=== PATIENT | male | born 1970 | race Caucasian/White ===

== ENCOUNTER → 2021-03-23 09:03 | Outpatient (CLI) | payer OTHER, SELFPAY ==
--- NOTE | ~2021-03-23 | XR_ITS ---
XR elbow RT min 3V DATE: 03/23/2021 09:17 INDICATION: Lateral epicondylitis TECHNIQUE: 4 views COMPARISON: 10/26/2013 right elbow FINDINGS: No fracture or dislocation or joint effusion. No periosteal reaction or bone destruction. IMPRESSION: Negative right elbow Reviewed, dictated and finalized at location A. IMPRESSION: Negative right elbow
== END ==
PROVIDERS: PCP Family Medicine; Visit Provider Physician Assistant
DX: M77.11 Lateral epicondylitis, right elbow (principal)
CPT/HCPCS: 73080

== ENCOUNTER 2022-07-29 22:29 | Emergency (ER) | payer OTHER, SELFPAY ==
[2022-07-29 22:33] VITALS: BP 129/82; PULSE 64; RESP 20; TEMP 36.2; O2SAT 98
--- NOTE | 2022-07-29 23:35 | ED.EYEPROB ---
HPI - Eye Problem General Chief complaint: Eye Problems Stated complaint: Left eye foreign body Time Seen by Provider: 07/29/22 22:47 History of Present Illness HPI Narrative: 52-year-old male presents the emergency room for evaluation of something in my left eye . Patient believes that he may have a eyelash under his upper eyelid. States that he was trying to remove it with a Q-tip, and was unsuccessful. Patient attempted to irrigated for several minutes and again felt that it was unsuccessful. Presents with erythematous eye. No drainage. Denies any visual changes or vision loss. Denies photophobia. Related Data Allergies Allergy/AdvReac Type Severity Reaction Status Date / Time penicillin V Allergy Unknown Unknown Verified 07/29/22 22:31 Penicillins Allergy Unknown Unknown Verified 07/29/22 22:31 Review of Systems Review of Systems: CONSTITUTIONAL: Denies fever, chills, or sweats. EYES: Reports left eye pain ENT: Denies rhinorrhea, congestion, sore throat, or otalgia. CARDIOVASCULAR: Denies chest pain, palpitations, or edema. RESPIRATORY: Denies cough or dyspnea. GASTROINTESTINAL: Denies abdominal pain, nausea, vomiting, or diarrhea. GENITOURINARY: Denies dysuria or hematuria. SKIN: Denies rash or itching. MUSCULOSKELETAL: Denies back pain, joint pain, or myalgia. NEUROLOGIC: Denies headache, numbness, dizziness, or weakness. PSYCHIATRIC: Denies anxiety or depression. [facility] Family History Family History Mother Patient's mother is in good health Father Patient's father is in good health, Onset Age: 65 Sibling Patient's brother is in good health, Onset Age: 35 Social History Social History Smoking status: Never smoker Second hand tobacco smoke exposure: No Alcohol intake: never Substance use: never Substance use type: does not use Gender identity (if verbalized by the patient): Male Sexual Orientation (if Verbalized by the Patient): Straight or Heterosexual Exam Narrative: GENERAL: Well-appearing, well-nourished, no physical limitations, and in no acute distress. HEAD: Normocephalic, atraumatic. EYES: left Conjunctivae erythematous, PERRLA and EOMI. pinpoint corneal abrasion to the 6 o'clock position CHEST: Clear to auscultation. No respiratory distress. No wheezes rales or rhonchi. No tenderness. HEART: Regular rate and rhythm. No murmur heard. Normal peripheral pulses. EXTREMITIES: Normal range of motion. No edema. No clubbing or cyanosis SKIN: Warm, dry, no rash. No noted wounds NEURO: No focal deficits. Alert and oriented x3. MAEW. CN's II-XI intact bilaterally, normal gait PSYCH: Cooperative. Normal mood and affect. Course Vital Signs Vital signs: Vital Signs Temperature 36.2 C L 07/29/22 22:33 Pulse Rate 64 07/29/22 22:33 Respiratory Rate 20 07/29/22 22:33 Blood Pressure 129/82 07/29/22 22:33 Pulse Oximetry 98 07/29/22 22:33 Oxygen Delivery Room Air 07/29/22 22:33 Temperature 36.2 C L 07/29/22 22:33 Pulse Rate 64 07/29/22 22:33 Respiratory Rate 20 07/29/22 22:33 Blood Pressure 129/82 07/29/22 22:33 Pulse Oximetry 98 07/29/22 22:33 Oxygen Delivery Room Air 07/29/22 22:33 Discharge Plan Discharge Clinical Impression: Corneal abrasion Patient Disposition: Home, Self-Care Condition: Stable Instructions: Antibiotic Form Prescriptions: New polymyxin B sulf-trimethoprim 10,000 unit- 1 mg/mL drops 1 drp LEFT EYE Q3H 5 Days Qty: 10 0RF Rx Instructions: while awake; do not exceed 6 doses in 24 hours No Action atorvastatin 20 mg tablet 20 mg PO QHS Qty: 90 2RF prednisone 10 mg tablet See Rx Instructions .Route .COMPLEX Qty: 18 0RF Rx Instructions: 3 tabs po qd x 3 d, then 2 tabs po qd x 3 d, then 1 tab po qd x 3 d ; Follow-up/Referrals: Diaz Garcia MD [Primary Care Provider]
== END 2022-07-29 23:46 | disposition home or self-care (01) ==
PROVIDERS: Emergency Provider Nurse Practitioner Family; PCP Family Medicine
DX: S05.02XA Injury of conjunctiva and corneal abrasion without foreign body, left eye, initial encounter (principal); X58.XXXA Exposure to other specified factors, initial encounter
CPT/HCPCS: 99283

== ENCOUNTER 2022-11-03 10:18 | Emergency (ER) | payer OTHER, SELFPAY ==
--- NOTE | ~2022-11-03 | XR_ITS ---
EXAMINATION: XR chest 2V DATE: 11/03/2022 10:44 INDICATION: Chest congestion TECHNIQUE: PA and lateral views of the chest were obtained. COMPARISON: None FINDINGS: The lungs are clear with no focal airspace opacities, pulmonary edema, pleural effusion or pneumothor ax. The cardiomediastinal silhouette is normal. Mild thoracic spondylosis. IMPRESSION: 1. No acute cardiopulmonary disease. Reviewed, dictated and finalized at location A. [employer]S COORDINATOR
--- NOTE | 2022-11-03 10:30 | ED.URI ---
HPI - URI/Sore Throat General Chief Complaint: Upper Respiratory Infection Stated Complaint: sore throat,cough,eliseo,chest hurts Time Seen by Provider: 11/03/22 10:21 Source: patient Mode of arrival: ambulatory Limitations: no limitations History of Present Illness HPI Narrative: Mr. Michael is a 52-year-old male patient presenting to the clinic today with complaints of sore throat, cough, congestion, and chest discomfort times 2-3 days. He reports no fever or chills. MD elicited complaint: sore throat and nasal congestion Related Data Allergies Allergy/AdvReac Type Severity Reaction Status Date / Time penicillin V Allergy Unknown Unknown Verified 11/03/22 10:28 Penicillins Allergy Unknown Unknown Verified 11/03/22 10:28 Review of Systems Review of Systems: Pertinent positives per HPI. Patient denies any fever, chills, rash, headache, visual changes, dizziness, shortness of breath, chest pain, palpitations, nausea, vomiting, diarrhea, constipation, abdominal pain, or any urinary issues. [facility] Family History Family History Mother Patient's mother is in good health Father Patient's father is in good health, Onset Age: 65 Sibling Patient's brother is in good health, Onset Age: 35 Social History Social History Smoking status: Never smoker Second hand tobacco smoke exposure: No Alcohol intake: never Substance use: never Substance use type: does not use Gender identity (if verbalized by the patient): Male Sexual Orientation (if Verbalized by the Patient): Straight or Heterosexual Comments At the time of my signature, I reviewed and agree with the nursing past medical, surgical, social, and family history. There is no relevant family history pertinent to the patient complaint. Exam Narrative: General: Well-developed, well nourished, in no apparent distress Head: Normocephalic, atraumatic Eyes: Pupils equally round and reactive to light bilaterally, EOM intact, sclera and conjunctive clear, no discharge, lids normal Ears: TMs intact and clear, ear canals clear, no drainage, grossly hearing normal. Nose: Nares patent, clear nasal discharge, no inflammation, no sinus tenderness. Mouth: Oral pharynx without lesions or masses, good dentition, MMM. Oropharynx red, postnasal drip Neck: Supple, trachea midline, no enlargement of anterior or posterior cervical nodes, no thyroid masses or goiter palpable. Cardio: Regular rate and rhythm, s1 and s2 normal, no murmur appreciated. Resp: Clear to auscultation bilaterally, no rhonchi, rales, wheezing or rubs Course Course Emergency Course: Portions of this record may have been created with voice recognition software. Level of Care: Express Care Visit Vital Signs Vital signs: Vital Signs Temperature 36.4 C L 11/03/22 10:32 Pulse Rate 64 11/03/22 10:32 Respiratory Rate 16 11/03/22 10:32 Blood Pressure 124/78 11/03/22 10:32 Pulse Oximetry 100 11/03/22 10:32 Temperature 36.4 C L 11/03/22 10:32 Pulse Rate 64 11/03/22 10:32 Respiratory Rate 16 11/03/22 10:32 Blood Pressure 124/78 11/03/22 10:32 Pulse Oximetry 100 11/03/22 10:32 Vital signs reviewed MDM - URI/Sore Throat MDM Narrative Medical decision making narrative: At the time of visit patient is resting comfortably on the exam table. COVID testing was negative in the clinic today. Influenza A test was positive. Chest x-ray was performed and was negative for pneumonia. Supportive measures were discussed with the patient he voiced understanding discharge instructions and agrees to treatment plan. Differential Diagnosis Differential diagnosis: Likely upper respiratory infection, otitis media, sinusitis, viral infection, bronchitis, influenza, pharyngitis and other (COVID) Lab Data Labs: Lab Results 11/03/22 Range/Units 10:35 POC SARS Co
[2022-11-03 10:32] VITALS: BP 124/78; PULSE 64; RESP 16; TEMP 36.4; O2SAT 100
== END 2022-11-03 11:16 | disposition home or self-care (01) ==
PROVIDERS: Emergency Provider Nurse Practitioner Family; PCP Family Medicine
DX: J10.1 Influenza due to other identified influenza virus with other respiratory manifestations (principal); Z20.822 Contact with and (suspected) exposure to COVID-19
CPT/HCPCS: 71046; 87426; 87804; 99213; C9803; G0463

== ENCOUNTER 2024-08-19 12:08 | Emergency (ER) | payer OTHER, SELFPAY ==
--- NOTE | 2024-08-19 12:11 | ED.SKABFB ---
HPI - Skin/Abscess/Foreign Bdy General Chief complaint: Skin/Abscess/Foreign Body Stated complaint: Skin Irritation Poison jayna Time Seen by Provider: 08/19/24 12:21 Source: patient, RN notes reviewed and old records reviewed Mode of arrival: ambulatory Limitations: no limitations History of Present Illness HPI narrative: 54-year-old male presents to the [facility] with concerns of poison jayna to the left ulnar aspect forearm. States that appeared about 3 days ago. He had been using [id number] topicals. Has a history of ?bad outbreaks. ? Related Data Allergies Allergy/AdvReac Type Severity Reaction Status Date / Time penicillin V Allergy Unknown Unknown Verified 07/15/24 15:13 Penicillins Allergy Unknown Unknown Verified 07/15/24 15:13 Review of Systems Review of Systems: All systems reviewed & are unremarkable except as noted in HPI and below Constitutional: Constitutional: Reports no additional constitutional complaints Eyes: Eyes: Reports no additional eye complaints ENT: Reports system reviewed and no additional complaints, except as documented Cardiovascular: Cardiovascular: Reports no additional cardiovascular complaints, Denies chest pain and Denies dyspnea Respiratory: Respiratory: Reports no additional respiratory complaints, Denies chest congestion, Denies cough and Denies dyspnea Gastrointestinal: Gastrointestinal: Reports no additional gastrointestinal complaints, Denies abdominal pain, Denies nausea and Denies vomiting Musculoskeletal: Musculoskeletal: Reports no additional musculoskeletal complaints Integumentary/Breasts: Skin/Breast: Reports as per HPI and Reports rash Neurologic: Reports system reviewed and no additional complaints, except as documented Psychiatric: Psychiatric: Reports no additional psychiatric complaints Allergic/Immunologic: Allergic/Immunologic: Reports no additional allergic/immunologic complaints [facility] Family History Family History Mother Patient's mother is in good health Father Patient's father is in good health, Onset Age: 65 Sibling Patient's brother is in good health, Onset Age: 35 Social History Social History Smoking status: Never smoker Second hand tobacco smoke exposure: No Alcohol intake: never Substance use: never Substance use type: does not use Living arrangements: with family Occupation/Education: occupation Gender identity (if verbalized by the patient): Male Sexual Orientation (if Verbalized by the Patient): Straight or Heterosexual Comments At the time of my signature, I reviewed and agree with the nursing past medical, surgical, social, and family history. There is no relevant family history pertinent to the patient complaint. Exam Const: General: cooperative, healthy appearing, comfortable, no acute distress, well developed, alert and well nourished Nutritional Appearance: well nourished Orientation/consciousness: patient oriented x3 Limitations: no limitations HENMT: Head: normal to inspection Ears: hearing grossly normal bilaterally and external ears normal Face/Nose/Sinus: Normal external nose present, normal facial exam and face symmetric Face and sinus: normal facial exam and face symmetric Eyes: General: appearance normal, both eyes and all related structures Alignment and Position: alignment normal Periorbital: periorbital findings normal Neck: Neck: normal visual inspection, full ROM, no lymphadenopathy and no meningeal signs Chest: Chest palpation & inspection: normal inspection of the chest Resp: Effort & Inspection: normal respiratory effort and able to speak in complete sentences Cardio: Rate: regular rate Skin: General skin exam: normal color and no rashes or lesions noted Lesions: no lesions Rashes: rashes noted (left forearm 2 x 3 cm area vesicles) Trauma: no lacerations or abrasions Woun
[2024-08-19 12:18] VITALS: BP 143/84; PULSE 56; RESP 16; TEMP 36.6; O2SAT 99
== END 2024-08-19 12:34 | disposition home or self-care (01) ==
PROVIDERS: Emergency Provider Nurse Practitioner; PCP Family Medicine
DX: L25.5 Unspecified contact dermatitis due to plants, except food (principal); E78.00 Pure hypercholesterolemia, unspecified
CPT/HCPCS: 99213; G0463

== ENCOUNTER 2025-05-27 13:36 | Emergency (ER) | payer OTHER, SELFPAY ==
[2025-05-27 13:46] VITALS: BP 130/77; PULSE 74; RESP 16; TEMP 36.4; O2SAT 98
--- NOTE | 2025-05-27 13:50 | ED.SKABFB ---
HPI - Skin/Abscess/Foreign Bdy General Chief complaint: Skin/Abscess/Foreign Body Stated complaint: Poison Alicia Patient presents to Express Care with complaints worsening poison alicia rash that began a little over 1 week ago. Patient noted he frequently gets poison alicia rash is unusually can clear this with Tecknu which she used but stated he missed a spot and then this has continued to spread over both arms, both legs, and abdomen. Patient noted that this times he usually needs a steroid. Related Data Allergies Allergy/AdvReac Type Severity Reaction Status Date / Time penicillin V Allergy Unknown Unknown Verified 02/18/25 10:17 Penicillins Allergy Unknown Unknown Verified 02/18/25 10:17 atorvastatin AdvReac Intermediate memory fog Verified 02/18/25 10:17 Review of Systems Constitutional: Constitutional: Reports as per HPI, Denies chills, Denies fatigue, Denies fever(s) and Denies weakness Eyes: Eyes: Reports no additional eye complaints Cardiovascular: Cardiovascular: Reports no additional cardiovascular complaints Respiratory: Respiratory: Reports no additional respiratory complaints Gastrointestinal: Gastrointestinal: Reports no additional gastrointestinal complaints Genitourinary: Genitourinary: Reports no additional male genitourinary complaints Musculoskeletal: Musculoskeletal: Reports no additional musculoskeletal complaints Integumentary/Breasts: Skin/Breast: Reports as per HPI, Reports pruritus, Reports erythema and Reports rash Neurologic: Reports as per HPI Psychiatric: Psychiatric: Reports no additional psychiatric complaints Endocrine: Endocrine: Reports no additional endocrine complaints Hematologic/Lymphatic: Hematologic/Lymphatic: Reports no additional hematologic/lymphatic complaints Allergic/Immunologic: Allergic/Immunologic: Reports as per HPI, Denies lip swelling, Denies throat swelling, Denies tongue swelling and Denies wheezing PMFSH Family History Family History Mother Patient's mother is in good health Father Patient's father is in good health, Onset Age: 65 Sibling Patient's brother is in good health, Onset Age: 35 Social History Social History Social History: Smoking status: Never smoker Second hand tobacco smoke exposure: No Alcohol intake: never Substance use: never Substance use type: does not use Do You Feel Safe in your Home?: Yes Lack of Transportation: No Lack of Food: Never True Current Housing: I Have Housing Concerned About Future Housing: No Difficulty Paying Gas/Electric Bills: No Difficulty Paying for Meds: No Currently Unemployed: YES Education: Don't Know Difficulty w/ Childcare or Family Care: No Living arrangements: with family Occupation/Education: occupation Gender identity (if verbalized by the patient): Male Sexual Orientation (if Verbalized by the Patient): Straight or Heterosexual Exam Const: General: healthy appearing and no acute distress Nutritional Appearance: well nourished Orientation/consciousness: patient oriented x3 Limitations: no limitations Eyes: Conjunctivae: conjunctivae normal EOM: EOMs intact bilaterally Direct Ophthalmoscopy: no photophobia Resp: Effort & Inspection: normal respiratory effort Auscultation: clear to auscultation bilaterally Cardio: Rate: regular rate Rhythm: regular rhythm Skin: General skin exam: normal color Rashes: rash noted Wounds: no wounds Other: Diffuse vesicular rash noted to right wrist, left wrist, left ankle, and abdomen Neuro: General: patient oriented x3 Speech: normal speech Gait exam (Neuro): Normal gait present Psych: Mental Status: mental status grossly normal Affect: normal affect Attitude: cooperative Course Course Level of Care: Express Care Visit Vital Signs Vital signs: Vital Signs Temperature 97.5 F L 05/27/25 13:46 Pulse Rate 74 05/27/25 13:46 Respiratory Rate 16 05/27/25 13:46 Blood Pressure 130/77 05/27/25 13:46 Pulse Oximetry 98 05/27/25 13:46 Temperature 97.5 F L 05/27/25 13:46 Pulse Rate 74 05/27/25 13:46 Respiratory Rate 16 05/27/25 13:46 Blood Pressure 130/77 05/27/25 13:46 Pulse Oximetry 98 05/27/25 13:46 MDM - Skin/Abscess/Foreign Bdy MDM Narrative Medical decision making narrative: Discharge instructions reviewed with patient, as well as provided in writing per nursing staff. The instructions also include specific and strict return/GO TO THE ER as well as f/u information. All questions have been answered, and the patient deny any further questions with discharge and discharge plan. Differential Diagnosis Differential diagnosis: Likely viral exanthem, cellulitis, insect bites, impetigo and contact dermatitis Medical Records Attestation: I reviewed the patient's medical records. Discharge Plan Discharge Clinical Impression: Allergic dermatitis due to poison alicia Patient Disposition: Home Condition: Stable Instructions: Antibiotic Form, Poison Alicia (ED) Additional Instructions: Prevention is always better than treatment. Learn to identify poison alicia, oak, and sumac and avoid it. Wear long sleeves, long pants, shoes, and socks. If you touched the plant, try to keep your hands away from your eyes, mouth, and face. Wash the skin thoroughly with soap and cool water as soon as possible. Scrub under the fingernails with a brush to prevent spreading of the resin to other parts of the body by touching or scratching. Remember to wash any clothing with soap and hot water as the resin can persist for many months and cause further dermatitis. Use calamine lotion on the affect area. IF symptoms get worse to follow up with your primary care provider or seek ER visit if you developing difficulty breathing, weakness, dizziness. Patient Language: Macedonian Prescriptions: New triamcinolone acetonide 0.1 % cream 1 applic topical TID Qty: 80 0RF methylprednisolone [Medrol (Dusty)] 4 mg tablets,dose pack See Rx Instructions .ROUTE .COMPLEX Qty: 21 0RF Rx Instructions: for 6 days No Action fluticasone propionate 50 mcg/actuation spray,suspension 1 spray intranasal DAILY Qty: 16 0RF Rx Instructions: administer into each nostril pravastatin 10 mg tablet See Rx Instructions .ROUTE .COMPLEX Qty: 30 2RF Dose Instruction: TAKE 1 TABLET BY MOUTH EVERYDAY AT BEDTIME Rx Instructions: TAKE 1 TABLET BY MOUTH EVERYDAY AT BEDTIME Follow-up/Referrals: Diaz Garcia MD [Primary Care Provider] - Time of Disposition: 13:54
== END 2025-05-27 13:57 | disposition home or self-care (01) ==
PROVIDERS: Emergency Provider Nurse Practitioner Family; PCP Family Medicine
DX: L23.7 Allergic contact dermatitis due to plants, except food (principal)
CPT/HCPCS: 99213; G0463

== ENCOUNTER 2025-06-09 17:00 | Emergency (ER) | payer OTHER, SELFPAY ==
[2025-06-09 17:09] VITALS: BP 122/80; PULSE 59; RESP 16; TEMP 36.3; O2SAT 100
--- NOTE | 2025-06-09 17:30 | ED.SKABFB ---
HPI - Skin/Abscess/Foreign Bdy General Chief complaint: Skin/Abscess/Foreign Body Stated complaint: RINGWORM ON LEG Time Seen by Provider: 06/09/25 17:10 Source: patient and RN notes reviewed Mode of arrival: ambulatory Limitations: no limitations History of Present Illness HPI narrative: 55-year-old male presents to [facility] complaining of possible ringworm/rash to his left lower leg. Patient does not know when symptoms started. 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 Patient denies any itchiness, fevers, pain, swelling body aches, chills, nausea, vomiting, or any other symptoms. Patient has not tried anything [id number] for symptoms. Related Data Home Medications ?Medication ?Instructions ?Recorded ?Confirmed ?Last Taken ?Type dorzolamide 22.3 mg-timolol 6.8 06/09/25 Unknown History mg/mL eye drops Allergies Allergy/AdvReac Type Severity Reaction Status Date / Time penicillin V Allergy Unknown Unknown Verified 02/18/25 10:17 Penicillins Allergy Unknown Unknown Verified 02/18/25 10:17 atorvastatin AdvReac Intermediate memory fog Verified 02/18/25 10:17 Review of Systems Review of Systems: CONSTITUTIONAL: Denies fever, chills, or sweats. EYES: Denies visual changes, redness, or discharge. ENT: Denies rhinorrhea, congestion, sore throat, or otalgia. CARDIOVASCULAR: Denies chest pain, palpitations, or edema. RESPIRATORY: Denies cough or dyspnea. GASTROINTESTINAL: Denies abdominal pain, nausea, vomiting, or diarrhea. GENITOURINARY: Denies dysuria or hematuria. SKIN: Positive for rash. Negative for itching. MUSCULOSKELETAL: Denies back pain, joint pain, or myalgia. NEUROLOGIC: Denies headache, numbness, or weakness. PSYCHIATRIC: Denies anxiety or depression. All other systems reviewed are negative, except as documented in HPI. [facility], [facility] Family History Family History Mother Patient's mother is in good health Father Patient's father is in good health, Onset Age: 65 Sibling Patient's brother is in good health, Onset Age: 35 Social History Social History Social History: Smoking status: Never smoker Second hand tobacco smoke exposure: No Alcohol intake: never Substance use: never Substance use type: does not use Do You Feel Safe in your Home?: Yes Lack of Transportation: No Lack of Food: Never True Current Housing: I Have Housing Concerned About Future Housing: No Difficulty Paying Gas/Electric Bills: No Difficulty Paying for Meds: No Currently Unemployed: YES Education: Don't Know Difficulty w/ Childcare or Family Care: No Living arrangements: with family Occupation/Education: occupation Gender identity (if verbalized by the patient): Male Sexual Orientation (if Verbalized by the Patient): Straight or Heterosexual Comments At the time of my signature, I reviewed and agree with the nursing past medical, surgical, social, and family history. There is no relevant family history pertinent to the patient complaint. Exam Narrative: GENERAL: This is a well-nourished, well-developed adult, in no apparent distress. They are non ill-appearing, nontoxic appearing. HEAD: normocephalic, atraumatic. EYES: Sclera clear/white. Conjunctiva normal. Vision is grossly intact. Extraocular movements intact EARS: External ears normal,Hearing grossly intact. NOSE: External nose normal THROAT: Mucous membranes moist, NECK: Neck supple, CARDIOVASCULAR: Regular rate and rhythm RESPIRATORY: Respiratory rate normal, respiratory effort nonlabored, no respiratory distress SKIN: Left lower leg: There is a circular erythematous plaque-like rash with central clearing that it is annular shaped to left lower medial extremity near the left ankle. It is measured approximately 2.3 cm x 2 cm. No surrounding cellulitis, no induration, no area of fluctuance, rashes nontender, no exudate. NEURO: awake, alert, and oriented to person, place and time. There were no obvious focal neurologic abnormalities. EXTREMITIES: No joint tenderness, effusion, or edema noted. Course Course Emergency Course: Portions of this record may have been created with voice recognition software Level of Care: Express Care Visit Vital Signs Vital signs: Vital Signs Temperature 97.4 F L 06/09/25 17:09 Pulse Rate 59 L 06/09/25 17:09 Respiratory Rate 16 06/09/25 17:09 Blood Pressure 122/80 06/09/25 17:09 Pulse Oximetry 100 06/09/25 17:09 Temperature 97.4 F L 06/09/25 17:09 Pulse Rate 59 L 06/09/25 17:09 Respiratory Rate 16 06/09/25 17:09 Blood Pressure 122/80 06/09/25 17:09 Pulse Oximetry 100 06/09/25 17:09 Reviewed MDM - Skin/Abscess/Foreign Bdy MDM Narrative Medical decision making narrative: Clinical presentation is consistent with ringworm. Will prescribe clotrimazole. Discussed physical exam findings. Advised supportive measures and signs/symptoms to go to the ER. Pt is appropriate for outpt treatment and f/u. Differential Diagnosis Differential diagnosis: Likely other (Tinea corporis, fungal infection, cellulitis, eczema, impetigo) Critical Care Time Critical Care Time Critical Care Time: No Discharge Plan Discharge Clinical Impression: Tinea corporis Patient Disposition: Home Condition: Stable Instructions: Antibiotic Form, Tinea Corporis (ED) Additional Instructions: Use the clotrimazole as directed. Apply it twice a day the next 1-3 weeks until symptoms resolve. Wash your skin daily with mild soap and water. Keep your skin dry specially after swimming or showering. Follow-up with PCP in 3-5 days. If you develops any fevers, pain, worsening swelling, redness or any serious concerns please go to the ER immediately. Patient Language: [place] Prescriptions: New clotrimazole 1 % cream 1 applic topical BID 21 Days Qty: 45 0RF No Action triamcinolone acetonide 0.1 % cream 1 applic topical TID Qty: 80 0RF methylprednisolone [Medrol (Dusty)] 4 mg tablets,dose pack See Rx Instructions .ROUTE .COMPLEX Qty: 21 0RF Rx Instructions: for 6 days dorzolamide-timolol 22.3-6.8 mg/mL drops fluticasone propionate 50 mcg/actuation spray,suspension 1 spray intranasal DAILY Qty: 16 0RF Rx Instructions: administer into each nostril pravastatin 10 mg tablet See Rx Instructions .ROUTE .COMPLEX Qty: 30 2RF Dose Instruction: TAKE 1 TABLET BY MOUTH EVERYDAY AT BEDTIME Rx Instructions: TAKE 1 TABLET BY MOUTH EVERYDAY AT BEDTIME Follow-up/Referrals: Diaz Garcia MD [Primary Care Provider] - Time of Disposition: 17:28
== END 2025-06-09 17:33 | disposition home or self-care (01) ==
PROVIDERS: PCP Family Medicine
DX: B35.4 Tinea corporis (principal)
CPT/HCPCS: 99213; G0463